=== PATIENT | male | born 1960 | race African-American/Black ===

== ENCOUNTER 2018-08-27 14:03 | Emergency (ER) | payer OTHER ==
[~2018-08-27] VITALS: Ht 188 cm; Wt 79.4 kg
[2018-08-27] MEDS ORDERED: ACETAMINOPHEN 325 MG TABLET PO ONE (14:30)
[2018-08-27] MEDS ORDERED: ACETAMINOPHEN 325 MG TABLET ONE (14:38)
--- NOTE | 2018-08-27 15:41 | NUR ---
Patient discharged to home in stable conditon. Written and verbal after care instructions given. Patient verbalizes understanding of instructions.
[2018-08-27 15:42] VITALS: BP 122/70
== END 2018-08-27 15:44 | disposition home or self-care (01) ==
LOC: ER 14:03
DX: S66.912A Strain of unspecified muscle, fascia and tendon at wrist and hand level, left hand, initial encounter (principal); S66.911A Strain of unspecified muscle, fascia and tendon at wrist and hand level, right hand, initial encounter; S43.402A Unspecified sprain of left shoulder joint, initial encounter; S80.212A Abrasion, left knee, initial encounter; S80.211A Abrasion, right knee, initial encounter; M25.562 Pain in left knee; X58.XXXA Exposure to other specified factors, initial encounter; Y93.89 Activity, other specified; Y92.89 Other specified places as the place of occurrence of the external cause; Y99.8 Other external cause status
CPT/HCPCS: 73030; 73110; A4663

== ENCOUNTER 2018-10-16 05:59 | Emergency (ER) | payer OTHER ==
[~2018-10-16] VITALS: Ht 185.4 cm; Wt 83.9 kg
--- NOTE | 2018-10-16 06:31 | NUR ---
Dr. Esquivel at bedside for MSE.
[2018-10-16] MEDS ORDERED: LIDOCAINE HCL 2% 20 ML VIAL TP ONE (07:00)
--- NOTE | 2018-10-16 07:05 | NUR ---
Report given to Pito mueller.
--- NOTE | 2018-10-16 08:02 | NUR ---
PT WAS D/C'd TO HOME. D/C INSTRUCTIONS GIVEN TO THE PT. NO BLEEDING. NO S/S OF DISTRESS AT HIS TIME.
[2018-10-16 08:04] VITALS: BP 136/84
== END 2018-10-16 08:11 | disposition home or self-care (01) ==
LOC: ER 06:01
DX: S01.111A Laceration without foreign body of right eyelid and periocular area, initial encounter (principal); S20.212A Contusion of left front wall of thorax, initial encounter; Y04.0XXA Assault by unarmed brawl or fight, initial encounter; Y93.89 Activity, other specified; Y92.89 Other specified places as the place of occurrence of the external cause; Y99.8 Other external cause status
CPT/HCPCS: 12013; 71101; 99283; J3490; A4663

== ENCOUNTER 2018-10-19 15:50 | Emergency (ER) | payer OTHER ==
[~2018-10-19] VITALS: Ht 185.4 cm; Wt 74.8 kg
--- NOTE | 2018-10-19 16:10 | NUR ---
PT SEEN BY PANTERA GORDILLO.
[2018-10-19 16:14] VITALS: BP 127/68
--- NOTE | 2018-10-19 16:14 | NUR ---
Patient discharged to home in stable conditon. Written and verbal after care instructions given. Patient verbalizes understanding of instructions.
== END 2018-10-19 16:15 | disposition home or self-care (01) ==
LOC: ER 15:51
DX: S01.111D Laceration without foreign body of right eyelid and periocular area, subsequent encounter (principal); X58.XXXD Exposure to other specified factors, subsequent encounter
CPT/HCPCS: A4663

== ENCOUNTER 2018-10-23 15:24 | Emergency (ER) | payer OTHER ==
[~2018-10-23] VITALS: Ht 185.4 cm; Wt 74.8 kg
--- NOTE | 2018-10-23 16:38 | NUR ---
Patient discharged to home in stable conditon. Written and verbal after care instructions given. Patient verbalizes understanding of instructions.PT WALKS IN STEADY GAIT. NO SIGN OF DISTRESS. MD REMOVED THE SUTURES ON THE RIGHT EYEBROW WITHOUT DIFFICULTY.
== END 2018-10-23 16:58 | disposition home or self-care (01) ==
LOC: ER 15:24
DX: S22.39XA Fracture of one rib, unspecified side, initial encounter for closed fracture (principal); S01.81XD Laceration without foreign body of other part of head, subsequent encounter; W22.8XXA Striking against or struck by other objects, initial encounter; Y04.0XXD Assault by unarmed brawl or fight, subsequent encounter; Y93.89 Activity, other specified; Y92.89 Other specified places as the place of occurrence of the external cause; Y99.8 Other external cause status
CPT/HCPCS: A4663